=== PATIENT | male | born 1930 | race Caucasian/White ===

== ENCOUNTER 2016-06-19 15:52 | Inpatient (IN) | END 2016-06-27 18:10 | disposition home or self-care (01) | DRG 871 | DX: A41.51 Sepsis due to Escherichia coli [E. coli] (principal); K85.10 Biliary acute pancreatitis without necrosis or infection; R00.1 Bradycardia, unspecified; K80.33 Calculus of bile duct with acute cholangitis with obstruction; R65.20 Severe sepsis without septic shock; I10 Essential (primary) hypertension; I87.8 Other specified disorders of veins; I89.0 Lymphedema, not elsewhere classified; I44.0 Atrioventricular block, first degree; I70.0 Atherosclerosis of aorta; Z16.12 Extended spectrum beta lactamase (ESBL) resistance; Z87.891 Personal history of nicotine dependence ==